=== PATIENT | male | born 1965 | race Hispanic/Latino ===

== ENCOUNTER 2017-08-05 12:11 | Inpatient (IN) | payer OTHER ==
[~2017-08-05] VITALS: Ht 172.7 cm; Wt 84.8 kg
[2017-08-05 12:47] LABS: BASOPHILS % (AUTO) 0.6 % (0.0-5.0); EOSINOPHILS % (AUTO) 0.6 % (0.0-8.0); HEMATOCRIT 44.9 % (42-54); LYMPHOCYTES % (AUTO) 17.1 % (21.0-51.0); MEAN CORPUSCULAR HEMOGLOBIN 29.6 pg (27.0-33.0); MEAN CORPUSCULAR HGB CONC 34.6 g/dL (32.0-36.0); MEAN CORPUSCULAR VOLUME 85.5 fL (79-99); MONOCYTES % (AUTO) 6.7 % (3.0-13.0); PLATELET COUNT (AUTO) 280 K/uL (130-400); RED BLOOD CELL COUNT(AUTO) 5.26 MIL/uL (4.50-6.20); RED CELL DISTRIBUTION WIDTH 13.5 % (11.0-15.5); WHITE BLOOD COUNT (AUTO) 11.9 K/uL (4.8-10.8)
[2017-08-05 12:55] LABS: CREATININE 1.1 mg/dL (0.5-1.5); POTASSIUM 4.2 mmol/L (3.5-5.1)
[2017-08-05 13:02] LABS: INR 1.07 (0.85-1.15); PARTIAL THROMBOPLASTIN TIME 31.9 SEC (26.3-35.5); PROTHROMBIN TIME 11.2 SEC (9.6-11.6)
[2017-08-05 13:08] LABS: ALBUMIN 3.8 g/dL (3.5-5.0); BILIRUBIN,TOTAL 0.6 mg/dL (0.2-1.0); CREATINE KINASE MB 0.5 ng/mL (0.5-3.6); TOTAL PROTEIN, SERUM 8.3 g/dL (6.0-8.3)
[2017-08-05] MEDS ORDERED: METOPROLOL TARTRATE 1 MG/ML 5ML VIAL IV ONE ×2 (15:05→15:27)
[2017-08-05] MEDS ORDERED: CLONIDINE HCL 0.1 MG TABLET ONE (15:36)
[2017-08-05] MEDS ORDERED: HYDRALAZINE HCL 25 MG TABLET ONE (16:40)
[2017-08-05] MEDS ORDERED: LABETALOL HCL 200 MG TABLET ONE (20:06)
[2017-08-05] MEDS ORDERED: LABE200T PO (22:43)
[2017-08-05 22:45] VITALS: BP 198/109
[2017-08-05] MEDS ORDERED: NITROGLYCERIN 0.4 MG SL TAB SL PRN (23:30)
[2017-08-05] MEDS: HYDRALAZINE HCL 20 MG/ML VIAL IV PRN (23:33)
[2017-08-06 03:55] VITALS: BP 156/104
[2017-08-06 07:00] VITALS: BP 168/99
[2017-08-06] MEDS ORDERED: LOSARTAN 50 MG TABLET PO SCH (09:15)
[2017-08-06] MEDS: LABETALOL HCL 200 MG TABLET PO SCH ×2 (09:40→20:19)
[2017-08-06 11:17] VITALS: BP 192/111
[2017-08-06] MEDS: HYDRALAZINE HCL 20 MG/ML VIAL IV PRN (12:06)
[2017-08-06 13:56] VITALS: BP 143/90
[2017-08-06 16:07] VITALS: BP 153/92
[2017-08-06 19:57] VITALS: BP 157/88
[2017-08-07 00:19] VITALS: BP 153/88
[2017-08-07 04:03] VITALS: BP 148/94
[2017-08-07 07:00] VITALS: BP 168/95
[2017-08-07] MEDS ORDERED: LOSARTAN 50 MG TABLET ONE ×2 (07:28→08:22)
[2017-08-07] MEDS: LABETALOL HCL 200 MG TABLET PO SCH (07:44)
[2017-08-07] MEDS ORDERED: LOSA100T29 PO (08:06)
[2017-08-07] MEDS ORDERED: LOSARTAN 50 MG TABLET PO SCH ×2 (09:00)
== END 2017-08-07 10:10 | disposition home or self-care (01) | DRG 313 ==
LOC: EDH 12:11 → EDHIP 17:22 → 2DH 22:37 → UNDODEPER 08-06 05:43
PROVIDERS: ADMIT Internal Medicine; ATTEND Internal Medicine
DX: R07.89 Other chest pain (principal); F12.90 Cannabis use, unspecified, uncomplicated; I16.0 Hypertensive urgency; I10 Essential (primary) hypertension; Z90.49 Acquired absence of other specified parts of digestive tract; Z82.49 Family history of ischemic heart disease and other diseases of the circulatory system
CPT/HCPCS: 36415; 71046; 76770; 80053; 82383; 82550; 82553; 83880; 84244; 84484; 85025; 85610; 85730; 93005; 93306; 99291; J0360; J3490

== ENCOUNTER 2018-05-17 09:33 | Emergency (ER) | payer OTHER ==
[~2018-05-17 09:33] MED LIST: LABE200T5 PO; LOSA100T20 PO
[2018-05-17] MEDS ORDERED: ASPIRIN 325 MG TABLET ONE (10:04)
== END 2018-05-17 10:56 | disposition home or self-care (01) ==
LOC: EDH 09:33
DX: I10 Essential (primary) hypertension (principal); Z91.14 Patient's other noncompliance with medication regimen; Z90.49 Acquired absence of other specified parts of digestive tract; Z72.0 Tobacco use
CPT/HCPCS: 84484; 93005

== ENCOUNTER 2018-05-18 14:24 | Emergency (ER) | payer MEDICARE, OTHER ==
[2018-05-18] MEDS ORDERED: ASPIRIN 325 MG TABLET ONE (15:03)
[2018-05-18] MEDS ORDERED: HYDROXYZINE HCL 25 MG TABLET ONE (15:13)
[2018-05-18 15:16] LABS: BASOPHILS % (AUTO) 0.5 % (0.0-5.0); EOSINOPHILS % (AUTO) 0.3 % (0.0-8.0); HEMATOCRIT 44.8 % (42-54); MEAN CORPUSCULAR HEMOGLOBIN 29.7 pg (27.0-33.0); MEAN CORPUSCULAR HGB CONC 33.8 g/dL (32.0-36.0); MEAN CORPUSCULAR VOLUME 87.9 fL (79-99); MONOCYTES % (AUTO) 7.2 % (3.0-13.0); PLATELET COUNT (AUTO) 271 K/uL (130-400); RED CELL DISTRIBUTION WIDTH 13.3 % (11.0-15.5); WHITE BLOOD COUNT (AUTO) 12.9 K/uL (4.8-10.8)
[2018-05-18 15:31] LABS: INR 1.06 (0.85-1.15); PROTHROMBIN TIME 11.1 SEC (9.6-11.6)
[2018-05-18 15:32] LABS: CREATININE 1.2 mg/dL (0.5-1.5)
[2018-05-18 15:42] LABS: ALBUMIN 3.9 g/dL (3.5-5.0); BILIRUBIN,TOTAL 0.7 mg/dL (0.2-1.0); TOTAL PROTEIN, SERUM 8.6 g/dL (6.0-8.3)
[2018-05-18 15:59] LABS: B-TYPE NATRIURETIC PEPTIDE 7 pg/mL (0-100)
== END 2018-05-18 17:35 | disposition home or self-care (01) ==
LOC: EDH 14:24
DX: F41.1 Generalized anxiety disorder (principal); R07.89 Other chest pain; R00.2 Palpitations; I10 Essential (primary) hypertension; F12.10 Cannabis abuse, uncomplicated; Z72.0 Tobacco use
CPT/HCPCS: 36415; 71045; 80053; 82550; 83874; 83880; 84484; 85025; 85610; 85730; 93005

== ENCOUNTER 2020-04-18 11:27 | Emergency (ER) | payer OTHER ==
[~2020-04-18 11:27] MED LIST changes: -LOSA100T20 PO; +LOSA100T58 PO
[2020-04-18 12:13] LABS: BASOPHILS % (AUTO) 0.5 % (0.0-5.0); EOSINOPHILS % (AUTO) 0.2 % (0.0-8.0); HEMATOCRIT 42.7 % (42-54); LYMPHOCYTES % (AUTO) 14.8 % (21.0-51.0); MEAN CORPUSCULAR HEMOGLOBIN 28.8 pg (27.0-33.0); MEAN CORPUSCULAR VOLUME 84.9 fL (79-99); MONOCYTES % (AUTO) 4.1 % (3.0-13.0); NEUTROPHILS % (AUTO) 79.9 % (40.0-77.0); PLATELET COUNT (AUTO) 335 K/uL (130-400); RED BLOOD CELL COUNT(AUTO) 5.03 MIL/uL (4.50-6.20); RED CELL DISTRIBUTION WIDTH 12.8 % (11.0-15.5); WHITE BLOOD COUNT (AUTO) 14.8 K/uL (4.8-10.8)
[2020-04-18 12:21] LABS: INR 0.99 (0.85-1.15); PARTIAL THROMBOPLASTIN TIME 33.6 SEC (26.3-35.5); PROTHROMBIN TIME 10.7 SEC (9.6-11.6)
[2020-04-18 12:22] LABS: ALBUMIN 3.8 g/dL (3.5-5.0); BILIRUBIN,TOTAL 0.4 mg/dL (0.2-1.0); CREATININE 1.1 mg/dL (0.5-1.5); POTASSIUM 3.9 mmol/L (3.5-5.1); TOTAL PROTEIN, SERUM 7.9 g/dL (6.0-8.3)
[2020-04-18 13:22] LABS: APPEARANCE,URINE Clear (CLEAR); BILIRUBIN,URINE Negative (NEGATIVE); COLOR,URINE Yellow (YELLOW); GLUCOSE, URINE (UA) Negative (NEGATIVE); KETONES,URINE Negative (NEGATIVE); LEUKOCYTE ESTERASE ,URINE Negative (NEGATIVE); NITRATE,URINE Negative (NEGATIVE); OCCULT BLOOD,URINE Negative (NEGATIVE); PROTEIN,URINE Negative (NEGATIVE)
[2020-04-18] MEDS ORDERED: HYDROXYZINE HCL 25 MG TABLET ONE (15:24)
== END 2020-04-18 16:03 | disposition home or self-care (01) ==
LOC: EDH 11:27
DX: R07.89 Other chest pain (principal); F41.9 Anxiety disorder, unspecified; I10 Essential (primary) hypertension; Z90.49 Acquired absence of other specified parts of digestive tract
CPT/HCPCS: 36415; 71045; 80053; 81003; 82550; 84484; 85025; 85610; 85730; 93005